=== PATIENT | female | born 1935 | race Caucasian/White ===

== ENCOUNTER 2018-10-14 15:05 | Inpatient (IN) | payer MEDICARE, OTHER ==
[~2018-10-14] VITALS: Ht 162.6 cm; Wt 58.5 kg
--- NOTE | ~2018-10-14 | PLAN ---
[address] [address] REHAB UNIT PLAN OF CARE Name: OMEGA QUIROZ Room: [address] IN [facility].#: [id number] Admission: 10/14/18 Attend Phys: Clementine Vasques DO Discharge: Date of : 33 Report #: [id number] THIS REPORT FOR: //name// CC: Nancy Vasques This is an 83-year-old female status post fall from standing height, sustaining a left femoral neck fracture, post left hemiarthroplasty on 10/09/2018 with concomitant UTI being treated with antibiotics upon admission. Previous level of function was independent with all activities of daily living. Current level of function is [id number] assistance of 1-2 depending on therapy, activity and time of day. Estimated length of stay is 10-12 days with discharge disposition to the home setting where she lives in an accessible house, independent living for seniors. MEDICAL PROGNOSIS: Good. REHABILITATION PROGNOSIS: Good. Physical therapy will see the patient 60-90 minutes per day, 5 days per week, working on upper and lower body strength, balance, coordination, navigation. Occupational therapy will work with the patient 60-90 minutes per day, 5 days per week, working on upper and lower body strength, balance, coordination, navigation, bathing, dressing, and toileting. Speech and language pathology based on her age and independent living status, we will conduct a cognitive evaluation and treat the patient 30-60 minutes per day, 5 days per week as needed on expression, memory, strategies, cognition. This is an overall plan of care, may change from time to time. We will team weekly and make changes to plan of care as needed. By: 1713 [id number] Vasques DO /nt
--- NOTE | ~2018-10-14 | H ---
[place] [address] HISTORY AND PHYSICAL Name: OMEGA QUIROZ Room: [address] IN [facility].#: [id number] Admission: 10/14/18 Attend Phys: Clementine Vasques DO Discharge: Date of : 33 Report #: [id number] THIS REPORT FOR: //name// CC: Nancy Vasques DATE OF SERVICE: 10/14/2018 [facility] code is 8.2. HISTORY OF PRESENT ILLNESS: This is an 83-year-old female admitted to inpatient rehabilitation to facilitate safe discharge home, status post acute hospitalization at [facility] on 10/09/2018 following a fall from standing height, sustaining a left femur fracture of the neck, status post left hemiarthroplasty, weightbearing as tolerated. She also had a diagnosis and history of UTI. Previous level of function was independent with activities of daily living. Current level of function is minimum to moderate assistance of 1-2 depending on therapy, activity and time of day. Estimated length of stay is 10-12 days with discharge disposition to the home setting where she has three steps to enter as an accessible house. She lives in an independent living senior housing complex. No changes since the preadmission screening. Multiple medical comorbidities requiring acute daily medical care including current UTI, being treated with antibiotics; hypertension; history of cancer; depression; chronic back and knee pain due to osteoarthritis; connective tissue disease; herniated disk; PE and DVT in the past and sick sinus syndrome. PAST MEDICAL HISTORY: Left hip fracture post-hemiarthroplasty, UTI, essential hypertension, left-sided breast cancer, hypothyroid, depression, chronic pain in the back and knees, osteoarthritis, bilateral lower extremity in the knees, connective tissue disease, lumbar herniated disk, lumbar radiculopathy, PE, DVT, sick sinus syndrome, lupus, and asthma. PAST SURGICAL HISTORY: Hysterectomy, ankle fracture, tonsillectomy, cataract surgery, back surgery, mastectomy and a hernia repair, L4-L5 microdiskectomy. FAMILY HISTORY: Cancer, hypertension, cardiac disease. ALLERGIES: ADHESIVE TAPE, SILICONE, LATEX, SULFA AND ADHESIVE. SOCIAL HISTORY: No tobacco, alcohol or illicit drug use. MEDICATIONS: Reviewed, reconciled and are available in the MAR. REVIEW OF SYSTEMS: A 14-point review of systems is done and is negative except as mentioned in HPI, specifically no fever, chest pain, shortness of breath, abdominal pain or distention, change in bowel or [place] [address] HISTORY AND PHYSICAL Name: OMEGA QUIROZ Room: [address] IN [facility]#: [id number] Admission: 10/14/18 Attend Phys: Clementine Vasques DO Discharge: Date of : 33 Report #: [id number] well controlled. PHYSICAL EXAMINATION: GENERAL: Alert, oriented, no apparent distress. VITAL SIGNS: Reviewed and are stable. HEENT: Head atraumatic, normocephalic. Pupils equal, round, reactive. ABDOMEN: Soft, nontender, nondistended. NEUROLOGIC: Cranial nerves 2-12 are grossly intact. No focal neuro deficits, 5/5 strength in bilateral upper and lower extremities. SKIN: Warm and dry. No rashes or lesions noted. MUSCULOSKELETAL: No clubbing, cyanosis or edema. ASSESSMENT: 1. Status post fall sustaining a left femoral neck fracture, status post left hemiarthroplasty on 10/09/2018. 2. Multiple medical comorbidities requiring acute daily medical care. 3. Multiple medical comorbidities. 4. Debility with alterations in activities of daily living. PLAN: 1. Admission to inpatient rehabilitation. 2. PT, OT, case management, nursing and HIMS to make evaluations and recommendations. 3. Based on her age of 83, we will do a cognitive evaluation. 4. We will team her weekly and plan of care is pending. By: 1712 1812Clementine Vasques DO /nt
--- NOTE | ~2018-10-14 | D ---
[facility] [address] [place] [address] DISCHARGE SUMMARY Name: OMEGA QUIROZ Room: [address] IN [facility]#: [id number] Admission: 10/14/18 Attend Phys: Clementine Vasques DO Discharge: Date of : 33 Report #: [id number] THIS REPORT FOR: //name// CC: Nancy Vasques DISCHARGE DIAGNOSIS: Left hip fracture. DISCHARGE DISPOSITION: She is being discharged to home with home health services, nursing, OT and PT. FOLLOWUP: She will follow up with Ortho in 1-2 weeks and with her primary care provider in 1 week. DISCHARGE INSTRUCTIONS: Notifications for physician were given. DIET: She is on a regular diet. Monitor weight gain. ACTIVITY PRECAUTION AND LIMITATIONS: Hip precautions and front wheel walker for ambulation. Okay to discharge home on 10/26/2018. DISCHARGE MEDICATIONS: Medications were reviewed and were reconciled by myself and are available in the MAR. A prescription was given for tramadol 50 mg tablet p.o. every 6 hours as needed, #20. DISCHARGE PHYSICAL EXAMINATION: GENERAL: Includes alert and oriented x 3, stable. NEUROLOGIC: Cranial nerves 2 through 12 within normal limits and intact. ABDOMEN: Nontender, nondistended. LUNGS: Symmetrical. HEART: Clear to auscultation bilaterally. HEENT: YAMILET BAKER. By: 1205 1221Keltasia Vasques DO /dianne
[~2018-10-14 15:05] MED LIST: ASPIR 8181 MG PO; ATIVAN1 MG PO; CALCIUM 500 +1 EAC5 PO; CELEXA20 MG PO; CENTRUM SILVER1 EAC4 PO; CLONIDINE0.1 PO; DIOVAN320 MG PO; DULERA 100 MCG/13 GM; EDLUAR10 MG SL; FOLIC ACID1 MG PO; HYDROCHLOROTH12.5 M1 PO; HYDROCODONE-AP1 EAC6 PO; HYDROXYCHLOROQ200 M1 PO; IBUPROFEN 600600 M1 PO; MIRALAX17 GM PO; NOLVADEX20 MG PO; PREDNISONE 5 MG5 M1 PO; SINGULAIR 10 MG10 M1 PO; SYNTHROID112 MC1 PO; ZOCOR20 MG PO; ZOLOFT50 MG PO
[2018-10-14] MEDS ORDERED: TRAMADOL 50 MG50 MG PO (15:30)
[2018-10-14] MEDS ORDERED: IRON325 PO (15:30)
[2018-10-14] MEDS ORDERED: ELIQUIS5 MG PO (15:32)
[2018-10-14] MEDS ORDERED: RESTORIL15 MG PO (15:32)
[2018-10-14] MEDS ORDERED: VITAMIN D1000 UNI1 PO (15:34)
[2018-10-14] MEDS ORDERED: VITAMIN E400 UNIT PO (15:35)
[2018-10-14] MEDS ORDERED: FEMARA2.5 MG PO (15:38)
[2018-10-14 18:00] VITALS: BP 162/46
--- NOTE | 2018-10-14 18:28 | NUR ---
PT TO 324 PER W/C AND IS ALERT AND ORIENTATED. PT ORIENTATED TO ROOM AND CONTROLS,FALL PRECAUTIONS AND REHAB PROGRAM.PT DENIES PAIN AT PRESENT. PHONE AND CALL LIGHT IN REACH.FAMILY AT BEDSIDE.
[2018-10-14 20:00] VITALS: BP 155/45
[2018-10-15 03:52] LABS: HEMATOCRIT 23.3 % (37.0-47.0); HEMOGLOBIN 7.8 gm/dL (12.0-15.0); MCH 31.3 pg (26.0-34.0); MCHC 33.3 g/dL (28.0-37.0); MPV 7.7 fl. (7.2-11.1); RBC 2.48 mil/uL (4.20-5.00); RDW-CV 13.3 % (10.5-14.5); WBC 8.3 thou/uL (4.0-11.0)
[2018-10-15 03:58] LABS: CALCIUM 9.1 mg/dL (8.5-10.1); CREATININE 1.1 mg/dL (0.6-1.3)
--- NOTE | 2018-10-15 05:20 | NUR ---
ASSUMED CARES AT 1920. ALERT AND ORIENTED X 4. PLEASANT. S/P LEFT HIP FRACTURE WITH SURGERY. WBAT LLE. MEPILEX TO LEFT HIP INTACT. TRAMADOL GIVEN FOR PAIN. TOOK PILLS WHOLE WITHOUT ISSUES. MIN ASSIST WITH GAIT BELT AND WALKER. UP TO BATHROOM FEW TIMES DURING THE NIGHT. DOES OWN CARES. WEARS PERIPAD. RESTORIL GIVEN PER PT REQUEST. SLEPT WELL MOST OF THE NIGHT. CALL LIGHT IN REACH AND BED ALARM ON.
[2018-10-15 08:30] VITALS: BP 142/42
--- NOTE | 2018-10-15 10:07 | NUR ---
SW met with pt to complete initial assessment, introduce self, and SW role on inpt rehab unit. Pt alert, oriented, pleasant. Pt lives at home alone. Pt has a friend who also lives in [place] who is supportive and pt says she has other friends who live in her neighborhood and they all support each other. Pt has a dtr who is visiting for a while from [place], [place]. Pt has a cane and a RW. Pt has history of HH services after her knee surgeries in 2017. Pt is uncertain of any dc needs at this time. SW to continue to follow to assist with safe dc planning.
--- NOTE | 2018-10-15 11:18 | NUR ---
PT'S PHARMACY CALLED WITH PLAQUINIL MEDICATION CONFIRMED TO BE 400MG DAILY. DISCUSSED WITH PT AND PT AGREES.
--- NOTE | 2018-10-15 13:05 | NUR ---
Nutrition: Visited with pt during lunch. She was eating, but also stated that "it's hard to get very hungry while you're in here." Wt: 141#. Heart Healthy diet. RX: statin, D3, folic acid, Fe, MVI. Admitted for hip FX. No concerns. Consider low risk.
--- NOTE | 2018-10-15 16:35 | NUR ---
PT HAS PARTICIPATED WITH THERAPIES AND CALLS FOR ASSIST NEEDS. PT AMBULATES WITH WALKER,GAITBELT AND MIN ASSIST WITH STEADY GIAT. PRN FOR PAIN PLAIN TYLENOL GIVEN THIS AFTERNOON WITH GOOD EFFECT. DRESSING TO LT HIP DRY AND INTACT.PT IS CONTINENT OF B+B AND ABLE TO ADJUST CLOTHING AND CLEANSE SELF.PT IS ALERT AND ORIENTATED AND EATS MEALS IN DINNINGROOM. PT ORIENTATED TO REHAB PROGRAM. HOURLY ROUNDING CONTINUES.
--- NOTE | 2018-10-15 19:17 | NUR ---
PT'S PHARMACY CALLED AND STATED PLAQUINIL WAS A 400MG DOSE DAILY.
[2018-10-15 20:00] VITALS: BP 134/39
--- NOTE | 2018-10-16 05:11 | NUR ---
ASSUMED CARE AT 1920. ALERT AND ORIENTED. PLEASANT. WBAT LLE. DRESSING TO LEFT HIP INTACT. TAKES PILLS WHOLE. MIN ASSIST WITH GAIT BELT AND WALKER. UP TO BATHROOM FEW TIMES. CAN GET UNSTEADY. PAIN MEDS GIVEN NEEDED. RESTORIL FOR SLEEP. SLEPT WELL MOST OF THE NIGHT. CALL LIGHT IN REACH AND BED ALARM ON.
[2018-10-16 08:00] VITALS: BP 147/45
--- NOTE | 2018-10-16 16:01 | NUR ---
RONALD, Dr Vasques and med student met with pt to review team conference summary and plan for pt to remain on rehab unit to continue therapies with team to reteam on Monday 10/23. Pt in agreement with plan. SW to continue to follow to assist with safe dc planning.
--- NOTE | 2018-10-16 18:36 | NUR ---
PT IS ALERT AND ORIENTED X 4. RECEIVED TRAMADOL AND TYLENOL FOR LEG PAIN. UP WITH SBA X 1 WITH GAIT BELT AND WALKER. PARTICIPATED IN THERAPIES DURING THE DAY. RECEIVED NEW ORDER PER DR. KEENAN FOR HYDROXYCHLOROQUINE. PT GIVEN PRN MIRALAX IN AM. HOURLY ROUNDS MAINTAINED. PT WILL USE CALL LIGHT FOR ASSISTANCE. CALL LIGHT WITHIN REACH.
[2018-10-16 20:00] VITALS: BP 134/41
--- NOTE | 2018-10-17 05:33 | NUR ---
ASSUMED CARES AT 1920. ALERT AND ORIENTED. PLEASANT. TOOK PILLS WHOLE WITHOUT ISSUES. MIN ASSIST WITH GAIT BELT AND WALKER. UP TO BATHROOM. DOES OWN CARES. HAD DIFFICULTY GETTING COMFORTABLE IN BED D/T LEFT HIP PAIN. TRAMADOL GIVEN. ADVISED PT TO REPOSITION. DID SLEEP BETTER AFTERWARDS. USING CALL LIGHT APPROPRIATELY. BED ALARM ON.
[2018-10-17 08:00] VITALS: BP 130/40
[2018-10-17 14:47] LABS: URINE BILIRUBIN NEGATIVE (Negative); URINE BLOOD NEGATIVE (Negative); URINE CLARITY CLEAR; URINE COLOR YELLOW; URINE GLUCOSE-RANDOM NEGATIVE (Negative); URINE KETONES NEGATIVE (Negative); URINE LEUKOCYTES-REFLEX NEGATIVE (Negative); URINE NITRITE-REFLEX NEGATIVE (Negative); URINE PROTEIN NEGATIVE (Negative); URINE UROBILINOGEN 0.2 E.U./dl (0.2-1.0)
--- NOTE | 2018-10-17 16:08 | NUR ---
ASSUMMED CARE OF PT AT 0730, PT ALERT AND ORIENTED, PT TRANSFERS WITH SBA/MIN ASSIST, GB WALKER, DRESSING CLEAN DRY AND INTACT TO LEFT HIP, PT TAKING FOOD AND FLUIDS WELL, PARTICIPATED IN ALL THERAPIES, HOURLY ROUNDING COMPLETED, ASSESSMENT COMPLETE, WILL CONTINUE TO MONITOR.
[2018-10-17 20:09] VITALS: BP 147/46
--- NOTE | 2018-10-18 05:03 | NUR ---
ASSUMED PT CARE AT 1930. PT SITTING UP IN RECLINER, ALERT AND ORIENTED X4. TOOK PILLS WHOLE WITH WATER WITHOUT DIFFICULTY. UP TO BATHROOM WITH MIN ASSIST, GAIT BELT AND WALKER. DRESSING TO LEFT HIP C/D/I. PT REQUESTED PRN TRAMADOL AND TENAZEPAM HS THEN SLEPT WELL OVERNIGHT. USES CALL LIGHT APPROPRIATELY. CALL LIGHT AND FREQUENTLY USED ITEMS WITHIN REACH. BED ALARM ON FOR SAFETY. HOURLY ROUNDING IN PROGRESS, WILL CONTINUE TO MONITOR.
[2018-10-18 08:31] VITALS: BP 98/41
[2018-10-18 10:00] VITALS: BP 102/50
[2018-10-18 16:01] LABS: % SATURATION 11 % (20-39); IRON 22 ug/dL (50-175)
--- NOTE | 2018-10-18 17:18 | NUR ---
ASSUMMED CARE OF PT AT 0730, PT ALERT AND ORIENTED, TRANSFERS WITH SBA, GB WALKER, COMPLAINS OF PAIN IN LEFT HIP MEDICATED PER ORDER, AMB TO BATHROOM TO VOID, DRESSING C/D/I TO LEFT HIP, TAKING FOOD AND FLUIDS WELL, PARTICIPATED IN ALL THERAPIES HOURLY ROUNDING COMPLETED, ASSESSMENT COMPLETE, WILL CONTINUE TO MONITOR.
[2018-10-18 20:13] VITALS: BP 129/37
--- NOTE | 2018-10-19 05:08 | NUR ---
ASSUMED PT CARE AT 1930. PT ALERT AND ORIENTED X4, POLITE AND COOPERATIVE WITH CARES. UP WITH SBA, GAIT BELT AND WALKER. PRN PAIN MEDICATION AT SHIFT CHANGE FOR LEFT HIP PAIN. UP TO BATHROOM WITH GAITBELT AND WALKER SEVERAL TIMES OVERNIGHT TO VOID. DRESSING TO LEFT HIP C/D/I. PRN TRAMADOL AND TEMAZEPAM AT HS PER PT REQUEST. PT SLEPT WELL OVERNIGHT. USES CALL LIGHT APPROPRIATELY. CALL LIGHT AND FREQUENTLY USED ITEMS WITHIN REACH. BED ALALRM ON FOR SAFETY. HOURLY ROUNDING IN PROGRESS, WILL CONTINUE TO MONITOR.
[2018-10-19 07:00] VITALS: BP 129/51
--- NOTE | 2018-10-19 16:17 | NUR ---
ASSUMED CARE AT 0730. ALERT ORIENTED PLEASANT COOPERATIVE. HX OF L HIP FX WBATLLE. DRESSING C/D/I L HIP. TANSFERS WITH SBA G BELT WALKER AND AMBULATES TO BR VOIDED AND HAD A BM ABLE TO DO HYGEINE AND CLOTHING ADJUSTMENTS. MEDICATED X 3 FOR L HIP PAIN WITH TRAMADOL AND TYLENOL WITH SOME RELIEF STATED. PARTICIPATING IN THERAPIES UP IN RECLINER WITH BLES ELEVATED WHEN NOT IN THERAPIES. DAUGHTER HERE VISITING THIS AFTERNOON.
[2018-10-19 20:06] VITALS: BP 133/35
--- NOTE | 2018-10-20 05:09 | NUR ---
ASSUMED PT CARE AT 1930. PT ALERT AND ORIENTED X4, POLITE AND COOPERATIVE WITH CARES. HX OF LEFT HIP FRACTURE. UP WITH SBA, GAIT BELT AND WALKER. UP TO BATHROOM SEVERAL TIMES OVERNIGHT TO VOID WITH GAIT BELT AND WALKER. DOES OWN PERICARES. DRESSING TO LEFT HIP C/D/I. PRN TRAMADOL AND TEMAZEPAM AT HS PER PT REQUEST. PT SLEPT WELL OVERNIGHT. USES CALL LIGHT APPROPRIATELY. CALL LIGHT AND FREQUENTLY USED ITEMS WITHIN REACH. BED ALARM ON FOR SAFETY. HOURLY ROUNDING IN PROGRESS, WILL CONTINUE TO MONITOR.
[2018-10-20 07:30] VITALS: BP 185/58
--- NOTE | 2018-10-20 15:12 | NUR ---
ASSUMED CARE AT 0730. ALERT ORIENTED PLEASANT COOPERATIVE. HX OF L HIP FX WBATLLE DRESSING C/D/I. TRANSFERS WITH SBA G BELT WALKER AMBULATES TO BR TO VOID HAD BM ABLE TO DO HYGEINE AND CLOTHING ADJUSTMENTS. STATES STILL EXPERIENCING DULL PAIN L HIP EVEN WITH TRAMADOL AND TYLENOL FOR PAIN. ICE PACK APPLIED ALSO SITTING IN RECLINER WITH BLES ELEVATED. DID OWN BATH AT SINK AND DRESSED SELF. FEEDS SELF TAKES MEDS WITHOUT DIFFICULTY. MALE VISITOR THIS AFTERNOON.
[2018-10-20 20:00] VITALS: BP 156/43
--- NOTE | 2018-10-21 05:07 | NUR ---
ASSUMED CARE AT 1920. ALERT AND ORIENTED. PLEASANT. C/O LEFT HIP PAIN. ICY HOT AND TRAMADOL GIVEN. REPOSITION IN BED. SBA WITH GAIT AND WALKER. UP TO BATHROOM. DOES OWN CARES. CALL LIGHT IN REACH AND BED ALARM ON.
[2018-10-21 08:51] VITALS: BP 152/47
--- NOTE | 2018-10-21 14:42 | NUR ---
ASSUMED CARE AT 0730. ALERT ORIENTED PLEASANT COOPERATIVE. HX OF L HIP FX WBATLLE. TRANSFERS WITH SBA G BELT WALKER AMBULATES TO BR TO VOID. DRESSING C/D/I TO L HIP. PARTICIPATING IN THERAPIES THROUGHOUT THE DAY. MEDICATED WITH TRAMADOL 1 TAB AND 2 TYLENOL PO FOR MINOR HIP PAIN TODAY. STATES PAIN IS SO MUCH BETTER TODAY THAN YESTERDAY. FEEDS SELF AND TAKES MEDS WITHOUT DIFFICULTY. SITTING IN RECLINER WITH BLES ELEVATED WHEN NOT IN THERAPIES.
[2018-10-21 20:00] VITALS: BP 146/46
--- NOTE | 2018-10-22 05:03 | NUR ---
ASSUMED PT CRE AT 1930. PT ALERT AND ORIENTED X4, POLITE AND COOPERATIVE WITH CARES. HX OF L HIP FX, WBAT TO LLE. TRANSFERS WITH SBA, GAIT BELT AND WALKER. UP TO BATHROOM TO VOID NUMEROUS TIMES OVERNIGHT. PRN TRAMADOL AND TENAZEPAM AT HS PER PT REQUEST. DRESSING TO LEFT HIP C/D/I. BED ALARM ON FOR SAFETY. USES CALL LIGHT APPROPRIATELY. CALL LIGHT AND FREQUENTLY USED ITEMS WITHIN REACH. HOURLY ROUNDING IN PROGRESS, WILL CONTINUE TO MONITOR.
[2018-10-22 07:45] VITALS: BP 152/41
--- NOTE | 2018-10-22 17:01 | NUR ---
pt has participated with therapies and is mod i in room. pt is reminded to continue to call for assist as needed. prn for pain given with good effect today. dressing to lt hip dry and intact. pt alert and orientated, hourly rounding continues.
[2018-10-22 20:05] VITALS: BP 152/40
--- NOTE | 2018-10-22 21:10 | NUR ---
SITTING UP IN RECLINER WORKING ON A PUZZLE BOOK. STATES LEFT HIP PAIN AT A "2" BUT WANTS TO TAKE PAIN MED LATER. DECLINED OFFER OF A SNACK. TOOK MEDICATIONS WHOLE WITH WATER WITHOUT DIFFICULTY.
--- NOTE | 2018-10-23 05:24 | NUR ---
RESTED QUIETLY. REMAINS MODIFIED INDEPENDENT IN ROOM WITH A WALKER. RELIEF WITH PAIN MEDICATIONS GIVEN LAST NIGHT UNTIL NOW. TYLENOL GIVEN THIS MORNING PER REQUEST FOR COMPLAINT OF LEFT HIP PAIN. HOURLY ROUNDING IN PROGRESS.
[2018-10-23 08:27] VITALS: BP 161/36
--- NOTE | 2018-10-23 14:15 | NUR ---
RONALD, Dr Vasques and med student met with pt to review team conference summary and plan for pt to dc home alone on Thursday 10/26 with HH services to follow. Pt has a friend who can provide a ride home on Sunday. SW to call pt friend to confirm. Pt preference for [facility] services; SW to arrange prior to dc. Pt in agreement with plan.
--- NOTE | 2018-10-23 16:55 | NUR ---
PT HAS PARTYICIPATED WITH THERAPIES AND CALLS FOR ASSIST NEEDED. PT IS MOD I IN ROOM WITH WALKER. PT HAS MOVED TO TRANSITION ROOM THIS AFTERNOON. PRN FOR PAIN GIVEN WITH GOOD EFFECT. PT REMAINS ALERT AND ORIENTATED.HOURLY ROUNDING CONTINUES.
[2018-10-23 20:30] VITALS: BP 150/48
[2018-10-24 04:44] LABS: HEMATOCRIT 25.8 % (37.0-47.0); HEMOGLOBIN 8.4 gm/dL (12.0-15.0); MCHC 32.5 g/dL (28.0-37.0); MCV 95.4 fL (80.0-100.0); RBC 2.7 mil/uL (4.20-5.00); RDW-CV 14.7 % (10.5-14.5); WBC 12.1 thou/uL (4.0-11.0)
[2018-10-24 05:06] LABS: CALCIUM 9.8 mg/dL (8.5-10.1); CREATININE 1.4 mg/dL (0.6-1.3); MAGNESIUM 2.2 mg/dL (1.8-2.4); POTASSIUM 4.2 mmol/L (3.5-5.1)
--- NOTE | 2018-10-24 05:29 | NUR ---
Assumed patient care at 1900. patient alert and oriented times four. able to ambulate independently with the walker to the restroom and manage all toileting caes independently. Minor complaints of pain noed in left hip, controlled with oral medication. Wedge provided for sleep as patient does not like to lie flat. carbon paper coating supervisor and hourly rounding competed as documented.
[2018-10-24 08:00] VITALS: BP 147/46
[2018-10-24 09:00] VITALS: BP 147/46
--- NOTE | 2018-10-24 17:22 | NUR ---
SW discussed pt dc planning in more detail with pt and pt friend. Pt to dc home alone on Sunday with pt friend to provide ride home. Pt reviewed all HH choices and decided she would rather prefer [facility]. SW to provide referral and orders prior to pt dc. SW provided resources and referrals and info regarding [facility].
--- NOTE | 2018-10-24 19:26 | NUR ---
I ASSUMED CARE OF THE PATIENT AT 0700. SHE IS ALERT AND ORIENTED X4 AND IS UP MOD I IN HER ROOM. BED IS A REGULAR BED. HOURLY ROUNDING IS COMPLETED AND PATIENT NEEDS ARE MET. PAIN IS MANAGED WITH PRN MEDS. SHE SHOULD D/C ON SUNDAY. DRESSING IS C/D/I. SKIN IS GOOD, VS ARE STABLE. WILL CONTINUE TO MONITOR.
[2018-10-24 19:55] VITALS: BP 141/49
[2018-10-25 02:53] VITALS: BP 141/49
[2018-10-25] MEDS ORDERED: CHLORTHALIDONE25 MG PO (03:03)
--- NOTE | 2018-10-25 05:34 | NUR ---
ASSUMED CARES AT 1920. ALERT AND ORIENTED. PLEASANT. DEBRA IN RM. PAIN MEDS GIVEN FOR LEFT HIP PAIN. UP TO BATHROOM. DOES OWN CARES. SLEPT OFF AND ON. CALL LIGHT IN REACH.
[2018-10-25 07:00] VITALS: BP 162/49
--- NOTE | 2018-10-25 14:16 | NUR ---
ASSUMED CARE AT 0730. ALERT ORIENTED PLEASANT COOPERATIVE. HX OF L HIP FX WBATLLE. PT. IS MOD I IN HER ROOM UP WITH WALKER AND TO BR TO VOID. DENIES PAIN EARLY A.M. DID C/O OF ACHE HIP AREA THIS NOON MEDICATED WITH TYLENOL 2 TABS PO. SITTING UP IN RECLINER AT BEDSIDE WHEN NOT WITH THERAPIES. FEEDS SELF TAKES MEDS WITHOUT DIFFICULTY.
[2018-10-25 15:16] VITALS: BP 141/49
--- NOTE | 2018-10-25 15:18 | NUR ---
Pt to dc home alone with friend support on Thursday 10/26. HH services to follow; pt preference for [facility] and SW faxed referral, orders, and med list to [facility] and spoke with Marcellus who accepted referral. Pt has a front wheeled rolling walker at home. Pt friend to provide ride home.
[2018-10-25 18:50] VITALS: BP 148/43
--- NOTE | 2018-10-25 19:40 | NUR ---
SITTING UP IN A CHAIR VISITING ON CELL PHONE. NO COMPLAINTS OF DISCOMFORT. MODIFIED INDEPENDENT IN ROOM WITH A WALKER. SNACK PROVIDED.
--- NOTE | 2018-10-26 06:46 | NUR ---
RESTED QUIETLY. TOOK SELF TO THE BATHROOM DURING THE NIGHT WITHOUT DIFFICULTY. TYLENOL GIVEN PER REQUEST AT 0502 FOR COMPLAINT OF PAIN IN LEFT HIP AND BACK RATED "2" WITH RELIEF. REMAINS MODIFIED INDEPENDENT IN ROOM WITH A WALKER. PATIENT TO BE DISCHARGED TO HOME TODAY WITH HOME HEALTH. HOURLY ROUNDING IN PROGRESS.
[2018-10-26 07:30] VITALS: BP 144/42
[2018-10-26 12:31] VITALS: BP 141/49
== END 2018-10-26 14:06 | disposition home health service (06) | DRG 536 ==
LOC: M.REH 15:05
PROVIDERS: Family Medicine; Internal Medicine; ADMIT Physical Medicine & Rehabilitation
DX: S72.002A Fracture of unspecified part of neck of left femur, initial encounter for closed fracture (principal); W18.39XA Other fall on same level, initial encounter; E03.9 Hypothyroidism, unspecified; G89.29 Other chronic pain; J45.909 Unspecified asthma, uncomplicated; R53.81 Other malaise; M19.90 Unspecified osteoarthritis, unspecified site; I12.9 Hypertensive chronic kidney disease with stage 1 through stage 4 chronic kidney disease, or unspecified chronic kidney disease; N18.3 Chronic kidney disease, stage 3 (moderate); R32 Unspecified urinary incontinence; M34.9 Systemic sclerosis, unspecified; Y93.89 Activity, other specified; Y92.89 Other specified places as the place of occurrence of the external cause; Y99.8 Other external cause status; Z87.440 Personal history of urinary (tract) infections; Z85.3 Personal history of malignant neoplasm of breast; Z86.711 Personal history of pulmonary embolism; Z86.718 Personal history of other venous thrombosis and embolism; Z90.12 Acquired absence of left breast and nipple; Z90.710 Acquired absence of both cervix and uterus; Z98.41 Cataract extraction status, right eye; Z98.42 Cataract extraction status, left eye; Z80.8 Family history of malignant neoplasm of other organs or systems; Z82.49 Family history of ischemic heart disease and other diseases of the circulatory system; Z91.040 Latex allergy status; Z88.2 Allergy status to sulfonamides; Z91.048 Other nonmedicinal substance allergy status; Z83.3 Family history of diabetes mellitus

== ENCOUNTER 2020-12-07 13:26 | Emergency (ER) | payer MEDICARE ==
[~2020-12-07] VITALS: Ht 157.5 cm; Wt 53.1 kg
[~2020-12-07 13:26] MED LIST changes: +CHLORTHALIDONE25 MG PO; +ELIQUIS5 MG PO; +FEMARA2.5 MG PO; +IRON325 PO; +RESTORIL15 MG PO; +TRAMADOL 50 MG50 MG PO; +VITAMIN D1000 UNI1 PO; +VITAMIN E400 UNIT PO
[2020-12-07] MEDS ORDERED: LIPITOR 20 MG T20 M1 PO (13:39)
[2020-12-07] MEDS ORDERED: HYDROCHLOROTHIA25 M1 PO (13:40)
[2020-12-07] MEDS ORDERED: NORVASC 2.5 MG2.5 M1 PO (13:40)
[2020-12-07] MEDS ORDERED: PURELAX PO (13:41)
[2020-12-07] MEDS ORDERED: PROTONIX40 M2 PO (13:42)
[2020-12-07 14:31] VITALS: BP 121/65
== END 2020-12-07 14:32 | disposition home or self-care (01) ==
LOC: M.ERS 13:26
DX: S93.491A Sprain of other ligament of right ankle, initial encounter (principal); I13.10 Hypertensive heart and chronic kidney disease without heart failure, with stage 1 through stage 4 chronic kidney disease, or unspecified chronic kidney disease; N18.30 Chronic kidney disease, stage 3 unspecified; E03.9 Hypothyroidism, unspecified; M32.9 Systemic lupus erythematosus, unspecified; Z90.89 Acquired absence of other organs; Z85.3 Personal history of malignant neoplasm of breast; Z90.49 Acquired absence of other specified parts of digestive tract; Z90.710 Acquired absence of both cervix and uterus; Z91.040 Latex allergy status; Z88.2 Allergy status to sulfonamides; Z88.8 Allergy status to other drugs, medicaments and biological substances; X50.1XXA Overexertion from prolonged static or awkward postures, initial encounter; Y93.89 Activity, other specified; Y92.89 Other specified places as the place of occurrence of the external cause; Y99.8 Other external cause status